=== PATIENT | male | born 1960 | race Two or more races ===

== ENCOUNTER 2025-07-13 12:00 | Day surgery (SDC) | payer MEDICARE, SELFPAY ==
[2025-07-12 15:22] VITALS: BMI 35.8
[2025-07-13] VITALS (11 sets, daily range): BP systolic 104–119; BP diastolic 66–92; PULSE 60–68; RESP 13–22; TEMP 36.2–36.7; O2SAT 93–97; BMI 34.8
[2025-07-13] MEDS: RINGERS LACTATED 500 ML 500 ML 20 ML IV (13:47)
[2025-07-13] MEDS: fentaNYL CIT INJ 50 mCg/ML AMP 2ML (ASD USE ONLY) IVP (13:50)
[2025-07-13] MEDS: MIDAZOLAM INJ 1 MG/ML VIAL 2 ML (ASD USE ONLY) 2 MG IVP (13:56)
--- NOTE | 2025-07-13 14:33 | SUR.PHASEII ---
PT MORE AWAKE AND MOVING AROUND IN THE GURNEY. PT PASSING FLATUS.
--- NOTE | 2025-07-13 14:35 | SUR.PHASEII ---
PT DRINKING JUICE. HE IS TOLERATING ORAL FLUID INTAKE.
== END 2025-07-13 14:47 | disposition home or self-care (01) ==
PROVIDERS: PCP Internal Medicine Pulmonary Disease; Referring Provider Surgery; Visit Provider Surgery
PROC: 0DBE8ZX Excision of Large Intestine, Via Natural or Artificial Opening Endoscopic, Diagnostic (ICD-10-PCS; CPT 45380; principal; 2025-07-13 13:45)
DX: Z12.11 Encounter for screening for malignant neoplasm of colon (principal); D12.0 Benign neoplasm of cecum; K57.30 Diverticulosis of large intestine without perforation or abscess without bleeding; E03.9 Hypothyroidism, unspecified; E66.01 Morbid (severe) obesity due to excess calories; Z68.36 Body mass index [BMI] 36.0-36.9, adult
CPT/HCPCS: 45385; A4649; J2250; J3010; J7120